=== PATIENT | female | born 1960 | race Two or more races ===

== ENCOUNTER 2019-12-25 11:00 | Inpatient (IN) | payer OTHER ==
[~2019-12-25] VITALS: Ht 162.6 cm; Wt 93.0 kg
[2019-12-29] MEDS ORDERED: COZAAR100 MG PO (13:47)
[2020-01-07] MEDS ORDERED: INTESTINEX680 M1 PO (07:21)
[2020-01-07] MEDS ORDERED: PERCOCET 5-3251 EACH PO (07:21)
[2020-01-07] MEDS ORDERED: PRILOSEC OTC20 MG PO (07:21)
[2020-01-07] MEDS ORDERED: QUESTRAN PACKET4 GM PO (07:21)
== END 2020-01-07 08:22 | disposition home or self-care (01) | DRG 329 ==
LOC: EDSTATUS 11:00 → ADM 11:00 → O/R 01-01 09:08 → SURH 01-01 11:00 → SURG 01-01 17:30 → SURH 01-01 18:48
PROVIDERS: ADMIT Surgery; ATTEND Surgery
PROC: 0FT44ZZ Resection of Gallbladder, Percutaneous Endoscopic Approach (ICD-10-PCS; 2020-01-01)
PROC: 0UB14ZZ Excision of Left Ovary, Percutaneous Endoscopic Approach (ICD-10-PCS; 2020-01-01)
PROC: 0DTN4ZZ Resection of Sigmoid Colon, Percutaneous Endoscopic Approach (ICD-10-PCS; principal; 2020-01-01 13:00)
DX: K57.20 Diverticulitis of large intestine with perforation and abscess without bleeding (principal); K85.10 Biliary acute pancreatitis without necrosis or infection; K80.10 Calculus of gallbladder with chronic cholecystitis without obstruction; N83.02 Follicular cyst of left ovary; R11.2 Nausea with vomiting, unspecified

== ENCOUNTER 2019-12-31 12:09 | Day surgery (SDC) | payer OTHER ==
[~2019-12-31 12:09] MED LIST: COZAAR100 MG PO
== END 2019-12-31 16:00 | disposition home or self-care (01) ==
LOC: AMB-ENDOS 12:09
PROVIDERS: ATTEND Surgery
DX: K63.5 Polyp of colon (principal)